=== PATIENT | male | born 1985 | race American Indian/Alaskan Native ===

== ENCOUNTER 2019-05-09 10:28 | Emergency (ER) | payer SELFPAY ==
[2019-05-09 10:41] VITALS: BP 123/79
== END 2019-05-09 12:00 | disposition left against medical advice (07) ==
LOC: ED 10:28
DX: Z53.21 Procedure and treatment not carried out due to patient leaving prior to being seen by health care provider (principal)

== ENCOUNTER 2019-05-10 09:03 | Emergency (ER) | payer SELFPAY ==
--- NOTE | 2019-05-10 09:12 | ED Physician Documentation ---
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 He states he has had a hurt at times in the past for a day or 2 and usually gets better. The wrist this time is been consistently hurting with motion for the last week or so. No abrupt injury). No: Fall, Twist Where injury occurred: Work Timing - onset: How many weeks ago (1) Timing - duration: Weeks (1) Timing - details: Gradual onset, Still present, Waxing and waning Improved by: Rest Worsened by: Moving, Palpating (dorsum wrist) Associated symptoms: Other (He states his middle finger has gotten caught in flexion and unable to extend it for a moment and then it will pop up and able to move it.). No: Weakness, Numbness, Swelling, Discolored Similar symptoms before: No diagnosis (for a day or two, but not extended time like currently.) Recently seen: Not recently seen Review of Systems Constitutional: denies: Fever, Chills Skin: denies: Rash, Lesions Neurologic: denies: Focal weakness, Numbness PD PAST MEDICAL HISTORY - Past Medical History Past Medical History: No Musculoskeletal: None - Present Medications Home Medications: Ambulatory Orders Medication Instructions Recorded Confirmed Naproxen 500 mg PO BID #20 tablet 05/10/19 dexAMETHasone [Decadron] 4 mg PO DAILY #5 tablet 05/10/19 - Allergies Allergies/Adverse Reactions: Allergies Allergy/AdvReac Type Severity Reaction Status Date / Time No Known Drug Allergies Allergy Verified 05/10/19 09:22 PD ED PE NORMAL - Vitals Vital signs reviewed: Yes - General General: Alert and oriented X 3, No acute distress, Well developed/nourished - Derm Derm: Normal color, Warm and dry, No rash - Extremities Extremities: Other (Dorsum of the right wrist with tenderness in the mid aspect proximal carpals and distal radius. There is no redness or warmth. There is no obvious deformity. There is no snuffbox tenderness. He does not have any tenderness in the volar aspect of the wrist. Normal color and capillary refill sensation and movement of the fingers.) - Neuro Neuro: Alert and oriented X 3, No motor deficit, No sensory deficit Results - Vitals Vitals: Oxygen O2 Source Room air - Rads (name of study) wrist xray Radiology: Prelim report reviewed (normal wrist xray), See rad report PD MEDICAL DECISION MAKING - ED course Complexity details: considered differential (Seems likely wrist tendinitis. Can get an x-ray to evaluate for stress fractures or bony abnormality. Can treat him with a wrist brace and anti-inflammatories.), d/w patient Departure - Departure Disposition: 01 Home, Self Care Clinical Impression: Right wrist tendonitis Condition: Stable Record reviewed to determine appropriate education?: Yes Instructions: Tendonitis and Tenosynovitis Follow-Up: Luis Alberto Lacy MD [Provider Admit Priv/Credential] - Prescriptions: dexAMETHasone [Decadron] 4 mg PO DAILY #5 tablet Naproxen 500 mg PO BID #20 tablet Comments: Use the wrist splint during work and use of the wrist to protect range of mo tion. This should allow for decreased inflammation of the tendons. Your problem sounds like tendinitis which is inflammation of the tendons. Use some anti-inflammatories such as naproxen and can also add Decadron steroid anti-inflammatory for a few days as well. Add Tylenol if needed for pains. The protected range of motion with the splint as well as anti-inflammatories should allow this to heal up over the next few days to week. Recheck if not better during that time or if recurring problems not improved with the splint. Forms: Activity restrictions Discharge Date/Time: 05/10/19 10:30
[2019-05-10 09:21] VITALS: BP 139/85
[2019-05-10] MEDS ORDERED: IBUPROFEN 600 MG TABLET PO STA (09:22)
--- NOTE | 2019-05-10 09:49 | XRAY Report ---
Reason: wrist pain for a week Procedure Date: 05/10/2019 Accession Number: [id number] / [id number] Procedure: XR - Wrist 3 View RT CPT Code: Final Report FULL RESULT: EXAM: RIGHT WRIST RADIOGRAPHY EXAM DATE: 05/10/2019 09:37 AM. CLINICAL HISTORY: Wrist pain for a week. COMPARISON: None. TECHNIQUE: 3 views. FINDINGS: Bones: Normal. No fractures or bone lesions. Joints: Normal. No subluxations. Soft Tissues: Normal. No soft tissue swelling. IMPRESSION: Normal wrist radiography. [facility]
== END 2019-05-10 10:30 | disposition home or self-care (01) ==
LOC: ED 09:03
DX: M67.931 Unspecified disorder of synovium and tendon, right forearm (principal)
CPT/HCPCS: 73110; 99283; A9270